=== PATIENT | male | born 1980 | race African-American/Black ===

== ENCOUNTER 2024-01-02 11:02 | Emergency (ER) | payer SELFPAY, OTHER ==
[2024-01-02] MEDS ORDERED: HYDROCODONE/APAP 10/325 TAB ONE (11:17)
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
--- NOTE | 2024-01-02 12:28 | RAD REPORT ---
EXAM DESCRIPTION: RAD - Knee Left 3 View - 01/02/2024 12:13 pm CLINICAL HISTORY: PAIN COMPARISON: No comparisons FINDINGS: Prominent tricompartmental osteoarthritis is present. No acute fracture or dislocation see n. No significant joint effusion.
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
[2024-01-02 13:01] VITALS: BP 154/97; O2SAT 95
== END 2024-01-02 12:42 | disposition home or self-care (01) ==
LOC: ER 11:02
DX: M79.632 Pain in left forearm (principal); M79.642 Pain in left hand; M25.562 Pain in left knee; V59.49XA Driver of pick-up truck or van injured in collision with other motor vehicles in traffic accident, initial encounter
CPT/HCPCS: 99284